=== PATIENT | female | born 1950 | race Caucasian/White ===

== ENCOUNTER 2018-07-25 14:39 | Emergency (ER) | payer MEDICARE ==
[2018-07-25 15:03] VITALS: BP 152/92
[2018-07-25] MEDS ORDERED: Lidocaine 1% MPF* 2 ML VIAL INJ ONE (15:08)
--- NOTE | 2018-07-25 15:08 | UC ---
Laceration HPI - HPI Summary HPI Summary: Patient cut her left fifth finger with a knife while cutting meat. states she is UTD on tetanus - History Of Current Complaint Stated Complaint: LEFT PINKY LACERATION Time Seen by Provider: 07/25/18 14:56 Hx Obtained From: Patient Laceration Location: Finger Mechanism Of Injury: Sharp Trauma Onset/Duration: Sudden Onset Severity: Mild - Allergies/Home Medications Allergies/Adverse Reactions: Allergies Allergy/AdvReac Type Severity Reaction Status Date / Time cefaclor [From Ceclor] Allergy Rash Verified 07/25/18 15:07 Iodinated Contrast- Oral and Allergy Rash Verified 07/25/18 15:07 IV Dye Sulfa (Sulfonamide Allergy Unknown Verified 07/25/18 15:07 Antibiotics) Reaction Details Home Medications: Home Medications FLUoxetine* [PROzac*] 20 mg PO DAILY 07/25/18 [History Confirmed 07/25/18] PMH/Surg Hx/FS Hx/Imm Hx Previously Healthy: Yes - Surgical History Surgical History: Yes Surgery Procedure, Year, and Place: gall bladder removed ; hysterectomy - Family History Known Family History: Positive: Hypertension - Social History Substance Use Type: None - Immunization History Most Recent Influenza Vaccination: 2011 Most Recent Tetanus Shot: UNKNOWN Review of Systems All Other Systems Reviewed And Are Negative: Yes Constitutional: Positive: Negative Skin: Positive: Other - laceration Eyes: Positive: Negative ENT: Positive: Negative Respiratory: Positive: Negative Cardiovascular: Positive: Negative Gastrointestinal: Positive: Negative Genitourinary: Positive: Negative Motor: Positive: Negative Neurovascular: Positive: Negative Musculoskeletal: Positive: Negative Neurological: Positive: Negative Psychological: Positive: Negative Is Patient Immunocompromised?: No Physical Exam Triage Information Reviewed: Yes Appearance: Well-Appearing, Well-Nourished, Pain Distress Vital Signs Reviewed: Yes ENT Exam: Normal Dental Exam: Normal Neck exam: Normal Respiratory Exam: Normal Cardiovascular Exam: Normal Abdominal Exam: Normal Musculoskeletal Exam: Normal Neurological Exam: Normal Psychological Exam: Normal Skin: Positive: Significant Lesion(s) - 1.5 cm laceration Laceration Repair - Laceration Repair 1 Description: Linear : No Repair Necessary Laceration Size After Repair: Length (cm) - 1.5 Modified For Repair: No Type Injection: Local Anesthesia Used: 1.0% Lido Cleansing Completed Via Routine Prep: Yes Irrigation With Pressure Irrigation Device: No Closure Material: Sutures - 2 Closure Method: Single Layer Suture Of: Skin Laceration Course/Dx - Course/Dx Course Of Treatment: hx obtained, exam performed, meds reviewed, laceration repaired. - Differential Dx - Laceration/Wound Differental Diagnoses: Laceration Provider Diagnoses: 1.5 cm simple laceration of the right 5th finger Discharge - Sign-Out/Discharge Documenting (check all that apply): Patient Departure All imaging exams completed and their final reports reviewed: No Studies - Discharge Plan Condition: Stable Disposition: HOME Patient Education Materials: Laceration (DC) Referrals: Tasia Machuca MD [Primary Care Provider] - Additional Instructions: 1. keep clean and dry 2. Stitches to be removed in 7- 10 days 3. FOllow up iwht any signs of infection - Billing Disposition and Condition Condition: STABLE Disposition: Home
[2018-07-25] MEDS ORDERED: Lidocaine 1% MPF* 2 ML VIAL ONE (15:09)
== END 2018-07-25 15:28 | disposition home or self-care (01) ==
LOC: UCCORT 14:39
DX: W26.0XXA Contact with knife, initial encounter (principal); Y93.G1 Activity, food preparation and clean up; Y92.9 Unspecified place or not applicable; S61.217A Laceration without foreign body of left little finger without damage to nail, initial encounter; Z88.1 Allergy status to other antibiotic agents; Z91.041 Radiographic dye allergy status
CPT/HCPCS: 12001; 99211; G0463

== ENCOUNTER 2019-04-13 08:32 | Emergency (ER) | payer MEDICARE ==
[2019-04-13 08:56] VITALS: BP 159/84
--- NOTE | 2019-04-13 09:50 | UC ---
Complaint Female HPI - HPI Summary HPI Summary: 68 yo female presents with urinary symptoms for 2 days. She tells me over the last 2 days she has had the urge to urinate, but when she does she only has dribbles of urine. Has some "stinging" at the end of her urine stream. She had a UTI about 2 months ago that resolved with anbx and states this feels the same. She denies fever, chills, abdominal pain, n/v, flank pain, vaginal discharge/itching, no hx of prolapse. - History Of Current Complaint Chief Complaint: UCGU Stated Complaint: URINARY ISSUE Time Seen by Provider: 04/13/19 09:50 Hx Obtained From: Patient Onset/Duration: Gradual Onset Severity Currently: None Pain Intensity: 0 - Allergies/Home Medications Allergies/Adverse Reactions: Allergies Allergy/AdvReac Type Severity Reaction Status Date / Time cefaclor [From Ceclor] Allergy Rash Verified 04/13/19 08:56 Iodinated Contrast- Oral and Allergy Rash Verified 04/13/19 08:56 IV Dye Sulfa (Sulfonamide Allergy Unknown Verified 04/13/19 08:56 Antibiotics) Reaction Details PMH/Surg Hx/FS Hx/Imm Hx Cardiovascular History: Hypertension Psychological History: Anxiety, Depression - Surgical History Surgical History: Yes Surgery Procedure, Year, and Place: gall bladder removed ; hysterectomy - Family History Known Family History: Positive: Hypertension - Social History Lives: With Family Alcohol Use: Occasionally Substance Use Type: None Smoking Status (MU): Never Smoked Tobacco - Immunization History Most Recent Influenza Vaccination: 2011 Most Recent Tetanus Shot: UNKNOWN Review of Systems All Other Systems Reviewed And Are Negative: Yes Constitutional: Positive: Negative Skin: Positive: Negative Respiratory: Positive: Negative Cardiovascular: Positive: Negative Gastrointestinal: Positive: Negative Genitourinary: Positive: Frequency, Urgency Neurological: Positive: Negative Psychological: Positive: Negative Physical Exam - Summary Physical Exam Summary: GENERAL: NAD. WDWN. No pain distress. SKIN: No rashes, sores, lesions, or open wounds. NECK: Supple. Nontender. No lymphadenopathy. CHEST: CTAB. No r/r/w. No accessory muscle use. Breathing comfortably and in no distress. CV: RRR. Without m/r/g. Pulses intact. Cap refill <2seconds ABDOMEN: Soft. NTTP. No CVA tenderness. Bowel sounds present NEURO: Alert. PSYCH: Age appropriate behavior. Triage Information Reviewed: Yes Vital Signs: Initial Vital Signs Temp 98 F 04/13/19 08:53 Pulse 63 04/13/19 08:53 Resp 16 04/13/19 08:53 BP 159/84 04/13/19 08:53 Pulse Ox 100 04/13/19 08:53 Vital Signs Reviewed: Yes Complaint Female Dx - Course Course Of Treatment: UA negative. Discussed results with pt and she declines pelvic exam today. She prefers to be treated with anbx at this time as she had a UTI a few months ago and this feels the same. Will send her urine for culture. Recommended that she be rechecked if her symptoms do not improve s/p anbx and if her urine is negative. - Differential Dx/Diagnosis Provider Diagnosis: Dysuria Discharge - Sign-Out/Discharge Documenting (check all that apply): Patient Departure All imaging exams completed and their final reports reviewed: No Studies - Discharge Plan Condition: Stable Disposition: HOME Prescriptions: Nitrofurantoin Monohyd/M-Cryst [Macrobid 100 mg Capsule] 100 mg PO BID #10 cap Patient Education Materials: Dysuria (ED) Referrals: Tasia Machuca MD [Primary Care Provider] - Additional Instructions: If you develop a fever, shortness of breath, chest pain, new or worsening symptoms - please call your PCP or go to the ED immediately. Your blood pressure was high at todays visit. Please see your primary provider within 4 weeks for recheck and re-evaluation. Your urine testing in the clinic did not show a UTI, but you are being treated based on your symptoms. Your urine will be sent to the lab for further testing. If your symptoms persist, please follow up with your PCP for further evaluation - Billing Disposition and Condition Condition: STABLE Disposition: Home
== END 2019-04-13 10:18 | disposition home or self-care (01) ==
LOC: UCEAST 08:32
DX: R39.11 Hesitancy of micturition (principal); R30.0 Dysuria; I10 Essential (primary) hypertension; F41.9 Anxiety disorder, unspecified; F32.9 Major depressive disorder, single episode, unspecified; Z88.2 Allergy status to sulfonamides
CPT/HCPCS: 81002; 87077; 87086; 87186; 99212; G0463

== ENCOUNTER 2019-11-09 09:24 | Emergency (ER) | payer MEDICARE ==
[2019-11-09 09:43] VITALS: BP 121/68
--- NOTE | 2019-11-09 10:14 | UC ---
Respiratory Complaint HPI - HPI Summary HPI Summary: cough x 2 weeks. cough is productive with yellow / green sputum worse with deep breathing, nothing makes it better has been wheezing with mild sob no sore throat, no nasal congestion , no fever, no chills - History of Current Complaint Chief Complaint: UCGeneralIllness Stated Complaint: COUGH Time Seen by Provider: 11/09/19 09:57 Hx Obtained From: Patient Onset/Duration: Gradual Onset, Lasting Weeks - 2, Still Present Timing: Constant Severity Initially: Moderate Severity Currently: Moderate Pain Intensity: 0 Character: Cough: Productive Aggravating Factors: Exertion, Deep Breaths Alleviating Factors: Nothing Associated Signs And Symptoms: Positive: Dyspnea, Wheezing. Negative: Fever, Chills, Dizziness, Calf Pain, Calf Swelling, URI, Nasal Congestion - Allergies/Home Medications Allergies/Adverse Reactions: Allergies Allergy/AdvReac Type Severity Reaction Status Date / Time [facility] Allergy Rash Verified 11/09/19 09:44 Iodinated Contrast Media Allergy Rash Verified 11/09/19 09:44 [Iodinated Contrast- Oral and IV Dye] Sulfa (Sulfonamide Allergy Unknown Verified 11/09/19 09:44 Antibiotics) Reaction Details Home Medications: Home Medications Calcium Carbonate [Calcium 600] 600 mg PO DAILY 03/13/13 [History Confirmed 11/25] Losartan TAB* [Cozaar TAB*] 50 mg PO DAILY 03/13/13 [History Confirmed 11/09/19] Multivitamins/Minerals TAB* [Thera M Plus*] 1 tab PO DAILY 03/13/13 [History Confirmed 11/09/19] FLUoxetine* [PROzac*] 20 mg PO DAILY 07/25/18 [History Confirmed 11/09/19] DOXYcycline CAP(*) [DOXYcycline 100MG CAP(*)] 100 mg PO BID #20 cap 11/09/19 [Rx ] Simvastatin 20 mg PO DAILY 11/09/19 [History Confirmed 11/09/19] PMH/Surg Hx/FS Hx/Imm Hx Psychological History: Anxiety - Surgical History Surgical History: Yes Surgery Procedure, Year, and Place: gall bladder removed ; hysterectomy - Family History Known Family History: Positive: Hypertension - Social History Alcohol Use: Occasionally Substance Use Type: None Smoking Status (MU): Never Smoked Tobacco - Immunization History Most Recent Influenza Vaccination: 2011 Most Recent Tetanus Shot: UNKNOWN Review of Systems All Other Systems Reviewed And Are Negative: Yes Constitutional: Positive: Negative. Negative: Fever Skin: Positive: Negative Eyes: Positive: Negative ENT: Positive: Negative Respiratory: Positive: Shortness Of Breath, Cough Cardiovascular: Positive: Negative Is Patient Immunocompromised?: No Physical Exam Triage Information Reviewed: Yes Appearance: Well-Appearing, No Pain Distress, Well-Nourished Vital Signs: Initial Vital Signs Temp 97.9 F 11/09/19 09:39 Pulse 79 11/09/19 09:39 Resp 16 11/09/19 09:39 BP 121/68 11/09/19 09:39 Pulse Ox 94 11/09/19 09:39 Vital Signs Reviewed: Yes Eye Exam: Normal Eyes: Positive: Conjunctiva Clear ENT: Positive: Normal ENT inspection, Hearing grossly normal, Pharynx normal Neck: Positive: Supple, Nontender, No Lymphadenopathy Respiratory: Positive: No respiratory distress, No accessory muscle use, Wheezing Cardiovascular: Positive: RRR, No Murmur, Pulses Normal Abdominal Exam: Normal Skin Exam: Normal Respiratory Course/Dx - Differential Dx/Diagnosis Provider Diagnosis: Bronchitis Discharge ED - Sign-Out/Discharge Documenting (check all that apply): Patient Departure All imaging exams completed and their final reports reviewed: No Studies - Discharge Plan Condition: Stable Disposition: HOME Prescriptions: DOXYcycline CAP(*) [DOXYcycline 100MG CAP(*)] 100 mg PO BID #20 cap Patient Education Materials: Acute Bronchitis (ED) Referrals: Tasia Machuca MD [Primary Care Provider] - If Needed - Billing Disposition and Condition Condition: STABLE Disposition: Home
== END 2019-11-09 10:13 | disposition home or self-care (01) ==
LOC: UCCORT 09:24
DX: J40 Bronchitis, not specified as acute or chronic (principal); F41.9 Anxiety disorder, unspecified; Z88.1 Allergy status to other antibiotic agents; Z91.041 Radiographic dye allergy status; Z88.2 Allergy status to sulfonamides; Z79.899 Other long term (current) drug therapy
CPT/HCPCS: 99212; G0463